=== PATIENT | female | born 1980 | race African-American/Black ===

== ENCOUNTER 2018-04-25 19:15 | Emergency (ER) | payer OTHER ==
--- NOTE | 2018-04-25 19:22 | PDOC ---
History of Present Illness - General History Source: Patient Exam Limitations: No Limitations - History of Present Illness Initial Comments: 04/25/18 20:15 The patient is a 37 year old female, with no significant PMH who presents to the emergency department with a sore throat for 1 day. The patient states that she feels lethargic. She reports associated fever, chills and cough with her sore throat. The patient denies any other symptoms. She denies chest pain, shortness of breath, headache and dizziness. She denies nausea, vomit, diarrhea , constipation or urinary symptoms. The patient denies any other complaints. PAST MEDICAL HISTORY: no significant history PAST SURGICAL HISTORY: no significant history FAMILY HISTORY: no pertinent history SOCIAL HISTORY: Pt lives with family and is employed. MEDICATIONS: reviewed ALLERGIES: As per nursing notes General: (+) fevers and chills. no weakness, no weight loss HEENT: (+)sore throat. No change in vision. No ear pain CardioVascular: No chest pain or shortness of breath Respiratory:(+)cough .No wheezing. Gastrointestinal: no nausea, vomiting, diarrhea or constipation, No rectal bleeding Genitourinary: No dysuria, hematuria, or frequency Musculoskeletal: No joint or muscle pain or swelling Neurologic: No headache, vertigo, dizziness or loss of consciousness Psychiatric: nor depression Skin: No rashes or easy bruising Endocrine: no increased thirst or abnormal weight change Allergic: no skin or latex allergy All other systems reviewed and normal GENERAL: The patient is awake, alert, and fully oriented, in no acute distress. HEAD: (+)tonsils enlarged with exudates and erythema. Bilateral sub edema lymphadenopathy. Head. normal with no signs of trauma. EYES: Pupils equal, round and reactive to light, extraocular movements intact, sclera anicteric, conjunctiva clear. EXTREMITIES: Normal range of motion, no edema. NEUROLOGICAL: Normal speech, normal gait. PSYCH: Normal mood, normal affect. SKIN: Warm, Dry, normal turgor, no rashes or lesions noted. <Catherine Hernandez - Last Filed: 04/25/18 20:14> - General History Source: Patient Exam Limitations: No Limitations - History of Present Illness Initial Comments: 04/25/18 19:58 A portion of this note was documented by scribe services under my direction. I have reviewed the details of the note, within reason, and agree with the documentation. The case summary and management plan written by me. Assessment and plan: This is a 37-year-old female who comes in complaining of fever chills or fatigue sore throat. On my exam patient had all 3 criteria for strep pharyngitis including fever, an exudative pharyngitis and lymphadenopathy. Patient was treated with amoxicillin and given Tylenol for fever Patient discharged home with a prescription for amoxicillin <Julianne Lopez I - Last Filed: 04/25/18 21:18> - General Chief Complaint: Sore Throat Stated Complaint: SORE THROAT, FEVER Time Seen by Provider: 04/25/18 19:22 Past History <Catherine Hernandez - Last Filed: 04/25/18 20:14> <Julianne Lopez I - Last Filed: 04/25/18 21:18> - Past Medical History Allergies/Adverse Reactions: Allergies Allergy/AdvReac Type Severity Reaction Status Date / Time acetaminophen [From Vicodin] Allergy Verified 04/25/18 19:40 hydrocodone [From Vicodin] Allergy Verified 04/25/18 19:40 Home Medications: Ambulatory Orders Amoxicillin - [Amoxicillin 500mg Capsule -] 500 mg PO BID #20 capsule 04/25/18 *Physical Exam - Vital Signs Last Vital Signs Temp Pulse Resp BP Pulse Ox 101 F H 98 H 18 110/68 100 04/25/18 20:00 04/25/18 20:00 04/25/18 20:00 04/25/18 19:15 04/25/18 20:00 <Catherine Hernandez - Last Filed: 04/25/18 20:14> ED Treatment Course - Medications Given in the ED: ED Medications Discontinued Medications Generic Name Dose Route Start Last Admin Trade Name Freq PRN Reason Stop Dose Admin Acetaminophen 1,000 mg 04/25/18 19:46 04/25/18 19:50 Tylenol - PO 04/25/18 19:47 1,000 mg ONCE ONE Administration Amoxicillin 500 mg 04/25/18 19:37 04/25/18 19:44 Amoxicillin - PO 04/25/18 19:38 500 mg ONCE ONE Administration <Catherine Hernandez - Last Filed: 04/25/18 20:14> *DC/Admit/Observation/Transfer - Attestations Scribe Attestion: 04/25/18 20:15 Documentation prepared by Catherine Hernandez, acting as medical technologist chemistry for Julianne Lopez MD. <Catherine Hernandez - Last Filed: 04/25/18 20:14> - Discharge Dispostion Decision to Admit order: No <Julianne Lopez I - Last Filed: 04/25/18 21:18> Diagnosis at time of Disposition: Strep pharyngitis - Discharge Dispostion Disposition: HOME Condition at time of disposition: Stable - Prescriptions Prescriptions: Amoxicillin - [Amoxicillin 500mg Capsule -] 500 mg PO BID #20 capsule - Patient Instructions Printed Discharge Instructions: DI for Strep Throat Additional Instructions: Take Tylenol or Motrin as directed on the bottle for pain or fevers. Get the prescription filled for amoxicillin take one tablet twice a day for 10 days make sure you take the full 10 day course even though he will start feeling better after 2-3 days it is very important you take the full 10 day course as if you do not complete the full 10 day course the bacteria that is causing the sore throat can migrate to your heart valves and destroy her heart valves. Return to the emergency department immediately with ANY new, persistent or worsening symptoms. Continue any medications as previously prescribed by your physician. You should follow up with your primary doctor as soon as possible regarding today's emergency department visit. . Please make sure your doctor reviews the results of your emergency evaluation. Thank you for coming to the Emergency Department today for your care. It was a pleasure to see you today. Please note that your evaluation is INCOMPLETE until you follow-up with your doctor.
[2018-04-25 19:24] VITALS: BP 110/68; BMI 20.9
[2018-04-25] MEDS ORDERED: AMOXICILLIN 500 MG CAPSULE (FP) PO ONE (19:37)
[2018-04-25] MEDS ORDERED: ACETAMINOPHEN 500 MG TABLET (FP) PO ONE (19:46)
[2018-04-25] MEDS ORDERED: ACETAMINOPHEN 500 MG TABLET (FP) ONE (19:47)
[2018-04-25 20:02] VITALS: PULSE 98; TEMP 101
== END 2018-04-25 20:00 | disposition home or self-care (01) ==
LOC: FER 19:15
DX: J02.0 Streptococcal pharyngitis (principal)
CPT/HCPCS: 99283-25